=== PATIENT | female | born 1990 | race Caucasian/White ===

== ENCOUNTER 2024-09-12 18:11 | Emergency (ER) | payer MEDICAID ==
[~2024-09-12] VITALS: Ht 160 cm; Wt 72.0 kg
[2024-09-12 18:59] VITALS: O2SAT 99
[2024-09-12] MEDS: LIDOCAINE 5% PATCH TOP SCH (19:51)
[2024-09-12] MEDS: KETOROLAC 15MG/ML VIAL IM ONE (19:51)
[2024-09-12] MEDS: ACETAMINOPHEN 325MG TABLET PO ONE (19:56)
[2024-09-12 20:25] LABS: CLARITY URINE CLEAR (CLEAR); COLOR URINE YELLOW (YELLOW); GLUCOSE URINE NEGATIVE (NEGATIVE); KETONES URINE NEGATIVE (NEGATIVE); LEUKOCYTE ESTERASE URINE TRACE (NEGATIVE); NITRITE URINE NEGATIVE (NEGATIVE); OCCULT BLOOD URINE 3+ (NEGATIVE); PROTEIN URINE NEGATIVE (NEGATIVE); SPECIFIC GRAVITY URINE 1.009 (1.005-1.030); UROBILINOGEN URINE 0.2 E.U./dL (0.2-1.0)
[2024-09-12 20:28] LABS: HCG SCREEN NEGATIVE
[2024-09-12 20:43] LABS: BACTERIA URINE TRACE; RBC URINE TNTC /hpf (0-2); SQUAMOUS EPITHELIAL CELL URINE RARE /lpf (RARE/1+); WBC URINE 0-2 /hpf (0-2)
[2024-09-12] MEDS ORDERED: CYCL10TA21 MT (21:05)
[2024-09-12 21:09] VITALS: BP 112/68; PULSE 64; RESP 18; TEMP 37.1; O2SAT 98
== END 2024-09-12 21:19 | disposition home or self-care (01) ==
LOC: ER 18:11
DX: G57.00 Lesion of sciatic nerve, unspecified lower limb (principal); M54.50 Low back pain, unspecified
CPT/HCPCS: 81003; 81025; 84703; 96372; 99283; J1885; Z7610